=== PATIENT | male | born 1970 | race Caucasian/White ===

== ENCOUNTER 2019-04-27 21:07 | Emergency (ER) | payer OTHER ==
[~2019-04-27] VITALS: Ht 180.3 cm; Wt 102.1 kg
[~2019-04-27 21:07] MED LIST: MOTRIN IB200 MG; PEPCID20 MG PO; PERCOCET 5-3251 EACH PO; TAMS0.4C PO
[2019-04-28] MEDS ORDERED: TAMS0.4C PO (00:14)
[2019-04-28] MEDS ORDERED: KETO10TA2 PO (00:14)
[2019-04-28] MEDS ORDERED: PNEU16DI2 IM (00:14)
[2019-04-28] MEDS ORDERED: NITROFURANTOIN100 MG PO (00:14)
== END 2019-04-28 00:48 | disposition home or self-care (01) ==
LOC: ER 21:07
DX: N20.1 Calculus of ureter (principal); N20.0 Calculus of kidney; R10.31 Right lower quadrant pain